=== PATIENT | male | born 1990 | race American Indian/Alaskan Native ===

== ENCOUNTER 2017-03-10 22:22 | Emergency (ER) | payer BC ==
[2017-03-10 23:13] LABS: Basophils % (Auto) 0.4 % (0.0-1.8); Eosinophils % (Auto) 0.9 % (0.0-4.3); Hematocrit 44.1 % (35.5-45.6); Hemoglobin 14.4 gm/dl (11.8-15.2); Mean Corpuscular HGB Conc 33 % (32-34); Mean Corpuscular Hemoglobin 29 pg (28-32); Mean Corpuscular Volume 88 fl (84-94); Platelet Count 248 K/mm3 (140-440); Red Blood Count 5.03 M/mm3 (3.65-5.03); Red Cell Distribution Width 14.1 % (13.2-15.2); White Blood Count 11.4 K/mm3 (4.5-11.0)
[2017-03-10 23:37] LABS: Anion Gap 21 mmol/L; BUN/Creatinine Ratio 15.55; Blood Urea Nitrogen 14 mg/dL (9-20); Calcium 9.4 mg/dL (8.4-10.2); Carbon Dioxide 21 mmol/L (22-30); Chloride 103.1 mmol/L (98-107); Glucose 89 mg/dL (75-100); Potassium 3.5 mmol/L (3.6-5.0); Sodium 142 mmol/L (137-145)
--- NOTE | 2017-03-10 23:48 | XRay Report ---
FINAL REPORT EXAM: XR CHEST ROUTINE 2V HISTORY: chest pain TECHNIQUE: PA and lateral chest radiographs PRIORS: None. FINDINGS: The costophrenic angles are cropped from the topography of the study.No focal consolidations are seen in the lungs and there are no pleural effusions.The cardiomediastinal silhouette is within normal limits for size and contour. No acute osseous abnormality is identified. IMPRESSION: 1. No definite radiographic evidence of acute cardiopulmonary disease.
[2017-03-11 03:58] VITALS: BP 150/79
[2017-03-11] MEDS ORDERED: TORADOL IM ONE (06:56)
--- NOTE | 2017-03-11 06:56 | Emergency Department Report ---
ED Chest Pain HPI - General Chief Complaint: Chest Pain Stated Complaint: CHEST PAIN Time Seen by Provider: 03/11/17 06:50 Source: patient Mode of arrival: Ambulatory Limitations: No Limitations - History of Present Illness Initial Comments: 26-year-old male here with intermittent pleuritic chest pain. Patient states he 's had the pain off and on for several months. It was worsening over the last couple days. He's been having some difficulty breathing and he has pain with deep breath. Denies fevers chills nausea vomiting. The pain is in the center of his chest doesn't radiate. He recently seen and placed on an inhaler but this does not seem to have improved his symptoms. -: week(s) Pain Location: substernal Pain Radiation: none Severity: moderate Severity scale (0 -10): 5 Quality: sharp Consistency: intermittent Improves With: medication-other Worsens With: exertion, inspiration re: dyspnea. denies: nausea, vomting, diaphoresis Other Symptoms: denies: cough, fever, syncope, rash, acid taste in mouth, leg swelling, palpitations, burping - Related Data Previous Rx's Medication Instructions Recorded Last Taken Type ALBUTEROL Inhaler [ProAir HFA 1 - 2 puff IH QID #1 inha 01/04/15 Unknown Rx Inhaler] Azithromycin [Zithromax Z-PRATEEK] 250 mg PO DAILY #6 tablet 01/04/15 Unknown Rx Ibuprofen [Motrin] 800 mg PO Q8H PRN #21 tablet 01/04/15 Unknown Rx methylPREDNISolone [Medrol Dose 4 mg PO .TAPER #1 tab.ds.pk 01/04/15 Unknown Rx Prateek] Ibuprofen [Motrin 600 MG tab] 600 mg PO Q8H PRN #30 tablet 03/11/17 Unknown Rx Allergies Allergy/AdvReac Type Severity Reaction Status Date / Time No Known Allergies Allergy Verified 03/10/17 22:39 Heart Score - HEART Score History: Slightly suspicious EKG: Normal Age: < 45 Risk factors: No known risk factors Troponin: < normal limit HEART Score: 0 - Critical Actions Critical Actions: 0-3 pts:0.9-1.7%risk of adverse cardiac event.Candidate for discharge ED Review of Systems ROS: Stated complaint: CHEST PAIN Other details as noted in HPI Comment: All other systems reviewed and negative Constitutional: denies: chills, fever Eyes: denies: eye pain, eye discharge, vision change ENT: denies: ear pain, throat pain Respiratory: shortness of breath. denies: cough, wheezing Cardiovascular: denies: chest pain, palpitations Endocrine: no symptoms reported Gastrointestinal: denies: abdominal pain, nausea, diarrhea Genitourinary: denies: urgency, dysuria Musculoskeletal: denies: back pain, joint swelling, arthralgia Skin: denies: rash, lesions Neurological: denies: headache, weakness, paresthesias Psychiatric: denies: anxiety, depression Hematological/Lymphatic: denies: easy bleeding, easy bruising ED Past Medical Hx - Past Medical History Previous Medical History?: No - Surgical History Past Surgical History?: No - Family History Family history: no significant - Social History Smoking Status: Former Smoker Substance Use Type: Alcohol - Medications Home Medications: Home Medications Medication Instructions Recorded Confirmed Last Taken Type ALBUTEROL Inhaler [ProAir HFA 1 - 2 puff IH QID #1 inha 01/04/15 Unknown Rx Inhaler] Azithromycin [Zithromax Z-PRATEEK] 250 mg PO DAILY #6 tablet 01/04/15 Unknown Rx Ibuprofen [Motrin] 800 mg PO Q8H PRN #21 tablet 01/04/15 Unknown Rx methylPREDNISolone [Medrol Dose 4 mg PO .TAPER #1 tab.ds.pk 01/04/15 Unknown Rx Prateek] Ibuprofen [Motrin 600 MG tab] 600 mg PO Q8H PRN #30 tablet 03/11/17 Unknown Rx ED Physical Exam - General Limitations: No Limitations General appearance: alert, in no apparent distress - Head Head exam: Present: atraumatic, normocephalic - Eye Eye exam: Present: normal appearance - ENT ENT exam: Present: mucous membranes moist - Neck Neck exam: Present: normal inspection. Absent: lymphadenopathy, thyromegaly - Respiratory Respiratory exam: Present: normal lung sounds bilaterally. Absent: respiratory distress - Cardiovascular Cardiovascular Exam: Present: regular rate, normal rhythm, normal heart sounds. Absent: systolic murmur, diastolic murmur, rubs, gallop - GI/Abdominal GI/Abdominal exam: Present: soft, normal bowel sounds - Rectal Rectal exam: Present: deferred - Extremities Exam Extremities exam: Present: normal inspection - Back Exam Back exam: Present: normal inspection - Neurological Exam Neurological exam: Present: alert, oriented X3 - Psychiatric Psychiatric exam: Present: normal affect, normal mood - Skin Skin exam: Present: warm, dry, intact, normal color. Absent: rash ED Course Vital Signs 03/10/17 03/11/17 22:39 03:57 Temperature 98.9 F 98.0 F Pulse Rate 79 88 Respiratory 16 18 Rate Blood Pressure 147/87 150/79 O2 Sat by Pulse 97 96 Oximetry ED Medical Decision Making - Lab Data Result diagrams: 03/10/17 22:59 03/10/17 22:59 Laboratory Results - last 24 hr 03/10/17 03/10/17 03/11/17 22:59 22:59 01:40 WBC 11.4 H RBC 5.03 Hgb 14.4 Hct 44.1 MCV 88 MCH 29 MCHC 33 RDW 14.1 Plt Count 248 Lymph % (Auto) 34.5 Brewster % (Auto) 7.5 H Eos % (Auto) 0.9 Baso % (Auto) 0.4 Lymph # 3.9 Brewster # 0.9 H Eos # 0.1 Baso # 0.0 Seg Neutrophils % 56.7 Seg Neutrophils # 6.5 Sodium 142 Potassium 3.5 L Chloride 103.1 Carbon Dioxide 21 L Anion Gap 21 BUN 14 Creatinine 0.9 Estimated GFR > 60 BUN/Creatinine Ratio 15.55 Glucose 89 Calcium 9.4 Troponin T < 0.010 < 0.010 03/11/17 04:50 WBC RBC Hgb Hct MCV MCH MCHC RDW Plt Count Lymph % (Auto) Brewster % (Auto) Eos % (Auto) Baso % (Auto) Lymph # Brewster # Eos # Baso # Seg Neutrophils % Seg Neutrophils # Sodium Potassium Chloride Carbon Dioxide Anion Gap BUN Creatinine Estimated GFR BUN/Creatinine Ratio Glucose Calcium Troponin T < 0.010 - EKG Data 03/11/17 06:55 Normal sinus rhythm rate of 77 normal axis normal intervals no ST-T wave changes - Medical Decision Making Patient is a 26-year-old male here with complaint chest pain. He is low risk for ACS and I do not suspect cardiac in origin. He has some intermittent pleuritic components to the chest pain. He is perc rule negative however I plan to check d-dimer given the pleuritic components of his chest pain. Chest x -ray is clear troponin negative 2 the rest of chemistries are unremarkable. D-dimer negative. Patient is extremely low risk for PE at this point. We'll not work up further. Plan to treat with NSAIDs and discharge. Portions of this chart were dictated with dictation software. There may be dictation errors contained within this note. Critical care attestation.: If time is entered above; I have spent that time in minutes in the direct care of this critically ill patient, excluding procedure time. ED Disposition Clinical Impression: Chest pain Disposition: TO HOME OR SELFCARE Is pt being admited?: No Condition: Stable Instructions: Chest Pain (ED) Additional Instructions: Please follow up with your regular doctor next week. Prescriptions: Ibuprofen [Motrin 600 MG tab] 600 mg PO Q8H PRN #30 tablet PRN Reason: Pain Referrals: PRIMARY CARE,MD [Primary Care Provider] - 3-5 Days
== END 2017-03-11 09:26 | disposition home or self-care (01) ==
LOC: ED 22:22
DX: R07.9 Chest pain, unspecified (principal); Z87.891 Personal history of nicotine dependence
CPT/HCPCS: 36415; 71020; 80048; 84484; 85025; 85379; 93005; 93010; 96372; 99285; J1885